=== PATIENT | female | born 2005 | race Caucasian/White ===

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

== ENCOUNTER 2023-10-19 11:41 | Emergency (ER) | payer BC, SELFPAY ==
[2023-10-19 11:57] VITALS: BP 123/67; PULSE 98; RESP 16; TEMP 36.7; O2SAT 100
--- NOTE | 2023-10-19 12:48 | ED.URI ---
HPI - URI/Sore Throat General Chief Complaint: Upper Respiratory Infection Stated Complaint: strep symptoms Source: patient, RN notes reviewed and old records reviewed Mode of arrival: ambulatory Limitations: no limitations History of Present Illness HPI Narrative: patient presents with complaints of sore throat since yesterday. She does report some fever, chills, sweats and associated headache. She denies any injury or trauma. She reports that she has recently been exposed to strep throat. She reports pain is worse with swallowing. She is able to manage her own secretions. Speaks in full sentences no respiratory distress or stridor Related Data Home Medications Medication Instructions Recorded Confirmed lamotrigine 100 mg tablet mg 10/19/23 Allergies Allergy/AdvReac Type Severity Reaction Status Date / Time pineapple Allergy Itching Verified 10/19/23 12:07 Review of Systems Review of Systems: All systems reviewed & are unremarkable except as noted in HPI and below Constitutional: Constitutional: Reports no additional constitutional complaints ENT: Reports system reviewed and no additional complaints, except as documented and Reports sore throat Cardiovascular: Cardiovascular: Reports no additional cardiovascular complaints Respiratory: Respiratory: Reports no additional respiratory complaints Gastrointestinal: Gastrointestinal: Reports no additional gastrointestinal complaints Musculoskeletal: Musculoskeletal: Reports myalgias Neurologic: Reports headache(s) [facility] Past Medical History Medical History No pertinent past medical history Surgical History Surgical History No pertinent past surgical history Social History Social History Smoking status: Never smoker Comments At the time of my signature, I reviewed and agree with the nursing past medical, surgical, social, and family history. There is no relevant family history pertinent to the patient complaint. Exam Const: General: cooperative, no acute distress, alert, awake and uncomfortable Orientation/consciousness: oriented to person, oriented to place and oriented to time HENMT: Head: normal to inspection Ears: TM's normal bilaterally Mouth: Yes moist mucous membranes Throat: posterior oropharynx abnormal ( tonsils 2 to 3+ bilaterally, uvula midline) erythema and exudates Resp: Effort & Inspection: normal respiratory effort and able to speak in complete sentences Auscultation: clear to auscultation bilaterally, no crackles, no rales, no rhonchi and no wheezes Cardio: Palpation: normal PMI Rate: regular rate Rhythm: regular rhythm Heart sounds: S1 normal heart sound present and S2 normal heart sound present Neuro: General: oriented to person, oriented to place and oriented to time Cranial nerves: Yes CN's II-XII intact bilaterally Psych: Appearance: grossly normal Thought process: Normal thought process present Insight: Good insight present (Psych) Judgement: Good judgement present (Psych) Course Course Level of Care: Express Care Visit Vital Signs Vital signs: Vital Signs Temperature 98.1 F 10/19/23 11:57 Pulse Rate 98 10/19/23 11:57 Respiratory Rate 16 10/19/23 11:57 Blood Pressure 123/67 10/19/23 11:57 Pulse Oximetry 100 10/19/23 11:57 Oxygen Delivery Room Air 10/19/23 11:57 Temperature 98.1 F 10/19/23 11:57 Pulse Rate 98 10/19/23 11:57 Respiratory Rate 16 10/19/23 11:57 Blood Pressure 123/67 10/19/23 11:57 Pulse Oximetry 100 10/19/23 11:57 Oxygen Delivery Room Air 10/19/23 11:57 Reviewed MDM - URI/Sore Throat MDM Narrative Medical decision making narrative: negative strep, culture sent. Physical exam is very consistent with strep throat. Will treat as such. Tonsils 2 to 3+ bilaterally with uvula m
[2023-10-19 12:51] LABS: EDSTREPNEGPOS1 Presumptive Negative
== END 2023-10-19 13:02 | disposition home or self-care (01) ==
PROVIDERS: Emergency Provider Nurse Practitioner Family; Referring Provider Emergency Medicine
DX: J02.9 Acute pharyngitis, unspecified (principal)
CPT/HCPCS: 87081; 87880; 99213; G0463